=== PATIENT | male | born 1985 | race Two or more races ===

== ENCOUNTER 2017-05-06 19:49 | Emergency (ER) | payer MEDICAID ==
[~2017-05-06] VITALS: Ht 162.6 cm; Wt 70.3 kg
[2017-05-06 20:11] VITALS: BP 146/90
--- NOTE | 2017-05-06 21:14 | NUR ---
Patient discharged to home in stable condition. Written and verbal after care instructions given. Patient verbalizes understanding of instruction. ambulatory with a steady gait with crutches. pt left without signing d/c papers. aware
== END 2017-05-06 21:18 | disposition home or self-care (01) ==
LOC: ER 19:53
DX: S82.892A Other fracture of left lower leg, initial encounter for closed fracture (principal); W21.03XA Struck by baseball, initial encounter; Y93.64 Activity, baseball; Y92.89 Other specified places as the place of occurrence of the external cause; Y99.8 Other external cause status
CPT/HCPCS: A4606; Z7610

== ENCOUNTER 2019-03-04 13:54 | Emergency (ER) | payer MEDICAID ==
[~2019-03-04] VITALS: Ht 175.3 cm; Wt 89.8 kg
--- NOTE | 2019-03-04 14:36 | NUR ---
PAINFUL & DIFFICULTY URINATING SINCE THU & ALSO C/O CHILLS, MURPHY & NECK PAIN. DENIES SOB, DIZZINESS, WEAKNESS. NO ACUTE DISTRESS NOTED. SKIN WARM TO TOUCH, DRY, INTACT. AMBULATORY, AOX4, VSS, RR EVEN AND UNLABORED ON RA. HOOKED TO MONITOR. FAMILY AT BEDSIDE AND READY FOR EVAL.
[2019-03-04] MEDS ORDERED: IV NS 0.9% 1,000 ML BAG IV ONE ×2 (15:00→16:30)
[2019-03-04] MEDS ORDERED: IBUPROFEN 600 MG TABLET PO ONE ×2 (15:00→15:26)
[2019-03-04] MEDS ORDERED: ONDANSETRON HCL/PF 4 MG/2 ML VIAL IVP ONE (15:00)
[2019-03-04] MEDS ORDERED: ACETAMINOPHEN ES 500 MG TABLET PO ONE (15:00)
[2019-03-04 15:03] LABS: BASOPHILS % (AUTO) 0.2 % (0.0-2.0); EOSINOPHILS % (AUTO) 0.1 % (0.0-6.0); HEMATOCRIT 42 % (39-51); HEMOGLOBIN 14.7 g/dL (13.5-17.5); LYMPHOCYTES # (AUTO) 0.3 /CMM (0.8-4.8); LYMPHOCYTES % (AUTO) 3.9 % (20.0-44.0); MEAN CORPUSCULAR HGB CONC 35 g/dl (31.0-36.0); MEAN CORPUSCULAR VOLUME 92 fL (80-96); MONOCYTES # (AUTO) 0.4 /CMM (0.1-1.30); MONOCYTES % (AUTO) 5.3 % (2.0-12.0); NEUTROPHILS # (AUTO) 7.2 /CMM (1.8-8.9); NEUTROPHILS % (AUTO) 90.5 % (43.0-81.0); PLATELET COUNT (AUTO) 149 /CMM (150-450); RED BLOOD CELL COUNT(AUTO) 4.55 MIL/uL (4.5-6.0); WHITE BLOOD COUNT (AUTO) 7.9 K/uL (4.3-11.0)
[2019-03-04 15:09] LABS: CALCIUM, SERUM 9.7 mg/dL (8.5-10.1); CREATININE 1.7 mg/dL (0.6-1.3); POTASSIUM 4.2 mmol/L (3.5-5.1)
[2019-03-04] MEDS ORDERED: ONDANSETRON HCL/PF 4 MG/2 ML VIAL ONE (15:25)
[2019-03-04] MEDS ORDERED: ACETAMINOPHEN ES 500 MG TABLET ONE (15:25)
[2019-03-04 16:21] LABS: APPEARANCE,URINE Clear (CLEAR); BILIRUBIN,URINE Negative (NEGATIVE); BLOOD, URINE Trace-intact Ery/uL (NEGATIVE); COLOR,URINE Yellow (YELLOW); KETONES,URINE Negative (NEGATIVE); LEUKOCYTE ESTERASE ,URINE Small (NEGATIVE); NITRITE, URINE Negative (NEGATIVE); PH,URINE 8.5 (5.0-8.0); PROTEIN,URINE 30 mg/dl (NEGATIVE); UGLUCOSE Negative (NEGATIVE)
--- NOTE | 2019-03-04 16:24 | NUR ---
PT RESTING COMFORTABLY IN BED. NO COMPLAINTS AT THIS TIME. WILL CONT TO MONITOR.
[2019-03-04 16:42] LABS: BACTERIA,URINE 1+ /HPF (None Seen); SQUAMOUS EPITHELIAL CELL,UR Few /HPF (None Seen)
[2019-03-04] MEDS ORDERED: CEFTRIAXONE 1GM BAG (ER ONLY) 1 GM/50 ML PIGGYBACK IV ONE (17:30)
[2019-03-04] MEDS ORDERED: CEFTRIAXONE 1GM BAG (ER ONLY) 50 ML IV ONE (17:32)
--- NOTE | 2019-03-04 17:58 | NUR ---
IV removed. Catheter intact and site benign. Pressure and 4x4 applied to site. No bleeding noted.Patient discharged to home in stable condition. Written and verbal after care instructions given. Patient verbalizes understanding of instruction.
[2019-03-04 17:59] VITALS: BP 121/80
== END 2019-03-04 18:00 | disposition home or self-care (01) ==
LOC: ER 13:56
DX: N39.0 Urinary tract infection, site not specified (principal); R50.9 Fever, unspecified; M79.18 Myalgia, other site; R00.0 Tachycardia, unspecified
CPT/HCPCS: 36415; 80048; 81001; 85025; 87077; 87086; 87186; 96365; 96375; 99283; J0696; J2405; J7030 ×2; 81000-TC

== ENCOUNTER 2020-04-09 14:20 | Emergency (ER) | payer MEDICAID ==
[~2020-04-09] VITALS: Ht 170.2 cm; Wt 99.8 kg
[2020-04-09 14:29] VITALS: BP 136/81
== END 2020-04-09 15:04 | disposition home or self-care (01) ==
LOC: ER 14:24
DX: S46.092A Other injury of muscle(s) and tendon(s) of the rotator cuff of left shoulder, initial encounter (principal); X50.0XXA Overexertion from strenuous movement or load, initial encounter; Y93.89 Activity, other specified; Y92.89 Other specified places as the place of occurrence of the external cause; Y99.8 Other external cause status